=== PATIENT | female | born 1950 | race Caucasian/White ===

== ENCOUNTER → 2019-03-01 | Outpatient (CLI) | payer MEDICARE, OTHER | LOC: RAD 08:00 | DX: M17.12 Unilateral primary osteoarthritis, left knee (principal) ==

== ENCOUNTER → 2022-06-05 | Outpatient (CLI) | payer MEDICARE, OTHER ==
[~2022-06-05] VITALS: Ht 152.4 cm; Wt 90.9 kg
[2022-06-05 09:29] LABS: BASO # 0.03 K/mm3 (0.02-0.10); EOS # 0.11 K/mm3 (0.04-0.40); EOS % 1.2 % (1.0-5.0); HEMATOCRIT 47.3 % (37.0-47.0); HEMOGLOBIN 14.7 g/dL (12.5-16.0); LYMPH# 2.51 K/mm3 (1.50-4.00); MEAN CELL VOLUME 93 fl (78-100); MEAN CORPUSCULAR HEMOGLOBIN 29 pg (27-31); MEAN CORPUSCULAR HGB CONC 31 g/dL (33-37); MEAN PLATELET VOLUME 11.1 fl (7.4-10.4); MONO # 0.68 K/mm3 (0.20-0.80); NEU # 5.56 K/mm3 (1.40-6.50); PLATELET COUNT 315 K/mm3 (130-400); RED BLOOD COUNT 5.11 M/mm3 (4.10-5.30); RED CELL DISTRIBUTION WIDTH 13.5 % (11.5-14.5); WHITE BLOOD COUNT 8.9 K/mm3 (4.8-10.8)
[2022-06-05 09:37] LABS: ALBUMIN 4.4 g/dL (3.4-4.8)
[2022-06-05 09:38] LABS: POTASSIUM 3.8 mmol/L (3.5-5.1)
[2022-06-05 09:39] LABS: CALCIUM 9.7 mg/dL (8.3-10.5)
[2022-06-05 09:40] LABS: TOTAL PROTEIN 7.8 g/dL (6.2-8.1)
[2022-06-05 09:42] LABS: TOTAL BILIRUBIN 0.5 mg/dL (0.2-1.2)
[2022-06-05 09:52] LABS: TROPONIN-I 0.085 ng/mL (<0.030)
[2022-06-05 10:07] VITALS: BP 141/92
== END ==
LOC: LAB 08:53
PROVIDERS: Nurse Practitioner Primary Care
DX: R07.9 Chest pain, unspecified (principal)

== ENCOUNTER 2022-07-13 13:30 | Outpatient (RCR) | payer MEDICARE, OTHER | END 2022-07-24 | disposition home or self-care (01) | LOC: CARDREHAB | DX: Z48.812 Encounter for surgical aftercare following surgery on the circulatory system (principal); Z95.5 Presence of coronary angioplasty implant and graft; I22.9 Subsequent ST elevation (STEMI) myocardial infarction of unspecified site ==

== ENCOUNTER → 2023-08-05 | Outpatient (CLI) | payer MEDICARE, OTHER | LOC: MAMMO 09:00 | DX: Z12.31 Encounter for screening mammogram for malignant neoplasm of breast (principal) ==

== ENCOUNTER → 2023-08-05 | Outpatient (CLI) | payer MEDICARE, OTHER | LOC: RAD 09:13 | DX: I10 Essential (primary) hypertension (principal) ==